=== PATIENT | female | born 1955 | race Two or more races ===

== ENCOUNTER 2016-09-13 11:08 | Emergency (ER) | payer MEDICAID, MEDICARE ==
--- NOTE | 2016-09-13 11:43 | ED Physician Chart ---
Chief Complaint/HPI - Patient Information Date Seen:: 09/13/16 Time Seen:: 11:34 Chief Complaint:: RIGHT EAR PAIN X3 DAYS History of Present Illness:: This 60-year-old female who is otherwise healthy presents with a three-day history of pain in the right ear. She has had somewhat of a discharge from the right ear and it is been itching over the past 2-3 weeks. No prior history of ear infection. No history of diabetes, hypertension, coronary artery disease, COPD or GI problems. Patient rates the pain as an 8/10 severity with no relieving or exacerbating factors. Following irrigation of the auditory canal the patient states that her pain is decreased with a 6/10 in severity. Allergies:: Allergies Allergy/AdvReac Type Severity Reaction Status Date / Time No Known Allergies Allergy Verified 09/13/16 11:15 Review:: Nurse's Note Reviewed (nursing triage notes reviewed showing patient with borderline hypertension of 139/90 normal temperature pulse rate and respiratory rate. 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 Musculoskeletal: No bone or joint pain, No muscle pain Endocrine: No polyuria, No polydipsia Psychiatric: No prior psych history Hematopoietic: No bruising, No lymphadenopathy Allergic/Immuno: No urticaria, No angioedema Neurological: No syncope, No focal symptoms, No weakness, No paresthesia, No seizure, No dizziness, No vertigo Past Medical History - Past Medical History Past Medical History: No significant medical hx Social History: Non Smoker, No Alcohol, No Drug Use, Family Medical History - Family Member Mother Other Medical History: patient denies family medical history Physical Exam - Physical Examination General/Constitutional: Well-developed, well-nourished, Alert, GCS 15, Non- toxic appearing, Ambulatory Head: Atraumatic Eyes: Lids, conjuctiva normal, PERRL, EOMI Skin: Nl inspection, No rash, No skin lesions, No ecchymosis ENMT: Nasal exam nl, Oropharynx nl Other ENMT comments:: Patient has what appear to be a cerumen plug in the right auditory canal. This was irrigated out, following which the patient felt significantly better. After irrigation the TM was visualized and was red and dull. There is mild enlargement with no exudate of the right tonsil. Neck: Nontender, No JVD, No nuchal rigidity, No mass Other Neck comments:: No cervical lymphadenopathy. Respiratory: Nl effort/Exclusion Labs/Radiology/EKG Results - Lab Results Results: No laboratory or radiographic testing indicated. Assessment - Assessment General Assessment: CASE SUMMARY: this 60-year-old female presents with a bright earache which began three days ago. The onset was gradual and she rates the severity of pain as 8/10 that the present time. There are no exacerbating or relieving factors. There is no associated hearing loss or tinnitus. The patient has experienced no vertigo. She has no prior history of similar episodes. Initially there was a cerumen plug in the auditory canal and this was irrigated clear by nursing staff. The patient had a mild relief of symptoms following the irrigation. Examination of the eardrum after the irrigation and an overall dusky appearance. There was no perforation in the eardrum but there was mild bulging. A diagnosis of acute otitis media was made and the patient was discharged with a prescription for amoxicillin, 500 mg, to be taking three times a day for seven days. She was also provided a prescription for [place] 7.5/325, dispense 12 , take one every six hours as needed for severe ear pain. She was given the usual precautions against mixing the Tinnie with alcohol and taking it within six hours of driving or activities requiring alertness. MDM FOR EAR PAIN. NOT Foreign body in the near based on physical examination. NOT Acute tonsillitis based on physical examination. NOT [place] trauma due to patients negative history for recent air travel or swimming beneath the surface of water. ED Septic Shock - . Is Septic Shock (SBP<90, OR Lactate>4 mmol\L) present?: No Reassessment (Disposition) - Reassessment Reassessment Condition:: Improved - Diagnosis Diagnosis:: OTITIS MEDIA, RT EAR. Take the amoxicillin 500 mg, 3 times a day for a 7 day course. Return to the emergency department if there is any significant worsening of pain. Return for recheck in 2-3 days if the pain has not significantly improved or follow up with her primary care physician. - Aftercare/Follow up Instructions Aftercare/Follow-Up Instructions:: Counseled pt & family regarding lab results/ diagnosis & need follow up - Patient Disposition Discharge/Transfer:: Home ED Discharge Plan - Patient Disposition Admit/Discharge/Transfer: PT DISCHARGED HOME Condition at Disposition: Improved Instructions: Otitis Media, Adult, [id number]
== END 2016-09-13 12:00 | disposition home or self-care (01) ==
LOC: ER 11:08
DX: H66.91 Otitis media, unspecified, right ear (principal)
CPT/HCPCS: Z7502

== ENCOUNTER 2016-09-17 09:28 | Emergency (ER) | payer MEDICAID ==
--- NOTE | 2016-09-17 10:11 | ED Physician Chart ---
Chief Complaint/HPI - Patient Information Date Seen:: 09/17/16 Time Seen:: 10:06 Chief Complaint:: rt ear pain History of Present Illness:: pt and speak almost totally serbian. 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 pt had 4 days of rt ear pain ...was seen here 4 days after and had her rt ear lavaged and was dcd w amox and norco. pt says she filled the amox and is taking it ...however denies using anything for pain except tylenol. unclear where the pain med went. pt says after the ed encounter the ear felt ok x 2 days then began hurting so bad she couldnt sleep. pain is constant. she has used no drops or ointment etc in the ear. no fever. no st. no uri sx. no [place]. no weak/numb/confusion. she denies increased pain w mvt of ear. never had trouble w ears in past. no recent travel. no airplane travel. no exp to loud explosions etc.. no known barotrauma. no loss hearing. not dizzy. Allergies:: Allergies Allergy/AdvReac Type Severity Reaction Status Date / Time No Known Allergies Allergy Verified 09/13/16 11:15 Vitals:: Vital Signs - 8 hr 09/17/16 09:44 Temp 98.5 F HR 91 RR 17 BP 126/85 O2 Sat % 96 Historian:: Patient, Family Member (), Other (serbian phone cone classifier tender used) Review of Systems - Review of Systems General/Constitutional: No fever, No chills, No weight loss, No weakness, No diaphoresis, No edema, No loss of appetite Skin: No skin lesions, No rash, No bruising Head: No headache, No light-headedness Eyes: No loss of vision, No pain, No diplopia ENT: Earache, No nasal drainage, No sore throat, No tinnitus Neck: No neck pain, No swelling, No thyromegaly, No stiffness, No mass noted Cardio Vascular: No chest pain, No palpitations, No PND, No orthopnea, No edema Pulmonary: No SOB, No cough, No sputum, No wheezing GI: No nausea, No vomiting, No diarrhea, No pain, No melena, No hematochezia, No constipation, No hematemesis G/U: No dysuria, No frequency, No hematuria Musculoskeletal: No bone or joint pain, No back pain, No muscle pain Endocrine: No polyuria, No polydipsia Psychiatric: No prior psych history, No depression, No anxiety, No suicidal ideation Hematopoietic: No bruising, No lymphadenopathy Allergic/Immuno: No urticaria, No angioedema Neurological: No syncope, No focal symptoms, No weakness, No paresthesia, No headache, No seizure, No dizziness, No confusion, No vertigo Past Medical History - Past Medical History Past Medical History: No significant medical hx Social History: Non Smoker, Medication: Reviewed Family Medical History - Family Member Mother History Unknown: Yes Physical Exam - Physical Examination General/Constitutional: Awake, Well-developed, well-nourished, Alert, No distress, GCS 15, Non-toxic appearing, Ambulatory Other Gen/Cons comments:: mod obese. very ltd burundian ability. nontoxic. alert. no incoordination. Head: Atraumatic Eyes: Lids, conjuctiva normal, PERRL, EOMI Skin: Nl inspection, No rash, No skin lesions, No ecchymosis, Well hydrated, No lymphadenopathy ENMT: External ears, nose nl, Nasal exam nl, Lips, teeth, gums nl Other ENMT comments:: lost of moist debris in rt ear canal. thick yellow copious secretion. canal looks inflamed. remainder on ent exam nrml. no adenopathy. ok rom neck. no obv mastoid tndrness. mvt of ext ear w no pain. Neck: Nontender, Full ROM w/o pain, No JVD, No nuchal rigidity, No bruit, No mass, No stridor Respiratory: Nl effort/Exclusion, Clear to Auscultation, No Wheeze/Rhonchi/Rales Cardio Vascular: RRR, No murmur, gallop, rubs, NL S1 S2 GI: No tenderness/rebounding/guarding, No organomegaly, No hernia, Normal BS's, Nondistended, No mass/bruits, No McBurney tenderness : No CVA tenderness Extremities: No tenderness or effusion, Full ROM, normal strength in all extremities, No edema, Normal digits & nails Neuro/Psych: Alert/oriented, DTR's symmetric, Normal sensory exam, Normal motor strength, Judgement/insight normal, Mood normal, Normal gait, No focal deficits Misc: normal gait, Normal back, No paraspinal tenderness Labs/Radiology/EKG Results - Lab Results Results: Laboratory Tests 09/17/16 09/17/16 10:15 10:15 WBC 5.3 RBC 5.19 H Hgb 14.8 Hct 44.4 MCV 85.6 MCH 28.6 MCHC Differential 33.4 RDW 13.7 Plt Count 189 MPV 9.0 Neutrophils % 55.6 Lymphocytes % 35.7 Monocytes % 6.7 Eosinophils % 1.3 Basophils % 0.7 Sodium 136 Potassium 4.0 Chloride 108 H Carbon Dioxide 24.5 Anion Gap 7.5 BUN 12 Creatinine 0.6 Est GFR ( Amer) > 60.0 Est GFR (Non-Af Amer) > 60.0 BUN/Creatinine Ratio 20.0 Glucose 127 H Calcium 9.9 Total Bilirubin 0.7 AST 19 ALT 29 Alkaline Phosphatase 69 Total Protein 8.0 Albumin 4.5 Globulin 3.5 Albumin/Globulin Ratio 1.3 - Radiology Results Results: ct head- min ttace fluid at rt posterior mastoid air cells (this is a common finding per dr ortiz and doesnt indicate mastoiditis). 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 ED Septic Shock - . 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 explained about dx and tx plan and dw pt about ct head finding of incidental cyst and need for f/u. this was done w extra care to ensure understanding and all qs answered (pt had none... asked 2x) plan dc w cortisporin brannon susp and norco 5mg no 12. fu w pmd for ct review and fu study prn. ret if worse. continue taking amox as rxd. notify pmd that ear cx was done and needs fu on. Reassessment Condition:: Improved - Diagnosis Diagnosis:: 1 right ear otitis externa 2 incidental rt frontal brain cyst - Aftercare/Follow up Instructions Aftercare/Follow-Up Instructions:: Counseled pt regarding lab results/diagnosis & need follow up - Patient Disposition Discharge/Transfer:: Home Condition at Disposition:: Improved ED Discharge Plan - Patient Disposition Admit/Discharge/Transfer: PT DISCHARGED HOME Prescriptions: Hc/Neomyxin Sulf/Polymyxin B [Cortisporin Otic Soln] 2 - 3 drop RIGHT EAR QID # 0 drops Hydrocodone/Acetaminophen [[place] 5-325 Tablet] 1 each PO Q6H PRN #12 tablet PRN Reason: Pain (Severe) Instructions: Otitis Externa, [id number], Otitis Externa
[2016-09-17 10:24] LABS: % BASOPHILS 0.7 % (0.0-2.0); % EOSINOPHILS 1.3 % (0.0-5.0); % LYMPHOCYTES 35.7 % (20.0-50.0); % MONOCYTES 6.7 % (2.0-10.0); % NEUTROPHILS 55.6 % (40.0-80.0); HEMATOCRIT 44.4 % (35.0-45.0); HEMOGLOBIN 14.8 gm/dL (11.7-15.5); MEAN CELL VOLUME 85.6 fl (81-100); MEAN CORPUSCULAR HEMOGLOBIN 28.6 pg (27.0-31.0); MEAN CORPUSCULAR HGB CONC 33.4 pg (28.0-36.0); NEUTROPHILE ABSOLUTE 2.9 Th/cmm (1.8-8.0); PLATELET COUNT 189 Th/cmm (150-400); RED BLOOD COUNT 5.19 Mil/cmm (3.80-5.10); RED CELL DISTRIBUTION WIDTH 13.7 % (11.5-20.0); WHITE BLOOD COUNT 5.3 Th/cmm (4.8-10.8)
[2016-09-17 10:40] LABS: ALB/GLOB RATIO 1.3 (1.0-1.8); ALKALINE PHOSPHATASE 69 U/L (34-104); ANION GAP 7.5 (7.0-16.0); BILIRUBIN,TOTAL 0.7 mg/dL (0.3-1.0); BUN - UREA NITROGEN 12 mg/dL (7-25); CALCIUM SERUM 9.9 mg/dL (8.6-10.3); CARBON DIOXIDE 24.5 mEq/L (21.0-31.0); CHLORIDE 108 mEq/L (98-107); CREATININE - SERUM 0.6 mg/dL (0.6-1.2); GLUCOSE 127 mg/dL (70-105); SGOT 19 U/L (13-39); SGPT/ALT 29 U/L (7-52); SODIUM SERUM 136 mEq/L (136-145)
--- NOTE | 2016-09-17 10:59 | Diagnostic Imaging Report ---
Head CT without intravenous contrast Indication: Pain, possible right mastoiditis Comparison: None Technique: Axial images were obtained from the vertex to the skull base without IV contrast. Coronal reconstructions were made. Total DLP: [id number], [id number] FINDINGS: Images of the brain obtained without contrast demonstrate no evidence of an acute hemorrhage. There is CSF attenuation involving the anterior right frontal lobe extra-axial region measuring 3.7 x 1.8 cm with associated mass effect upon the right frontal lobe. No midline shift. No evidence of a skull fracture or focal soft tissue swelling. Calcifications of the bilateral external ear regions are noted. There is mild soft tissue density seen along the bilateral middle ear regions. There is minimal fluid along the right posterior mastoid air cells. IMPRESSION: No evidence of acute intracranial hemorrhage 3.7 x 1.8 cm CSF attenuation seen along the right frontal lobe region. This may represent an arachnoid cyst. Mild mass effect upon the right frontal lobe is noted. No midline shift. Recommend clinical correlation and correlation with old exams. Short-term follow-up MRI is also recommended. Bilateral external ear calcifications. Minimal soft tissue density the bilateral middle ear regions are also noted. Findings may be due to prior inflammatory process. Minimal fluid along the posterior right mastoid air cells.
== END 2016-09-17 12:00 | disposition home or self-care (01) ==
LOC: ER 09:28
DX: H60.91 Unspecified otitis externa, right ear (principal); G93.0 Cerebral cysts
CPT/HCPCS: 36415-UA; 70450-TC; 80053-TC; 85025-TC; 87070-90